=== PATIENT | female | born 1990 | race African-American/Black ===

== ENCOUNTER 2016-10-08 08:04 | Emergency (ER) | payer MEDICAID, MEDICARE ==
[~2016-10-08] VITALS: Ht 157.5 cm; Wt 50.0 kg
[2016-10-08] MEDS ORDERED: ACETAMINOPHEN 500MG TABLET PO ONE (09:45)
[2016-10-08 12:15] VITALS: BP 124/66
== END 2016-10-08 12:30 | disposition home or self-care (01) ==
LOC: ER 08:58
DX: R51 Headache (principal); R42 Dizziness and giddiness; H53.8 Other visual disturbances
CPT/HCPCS: 70450; 81025; 99284

== ENCOUNTER 2018-08-27 21:00 | Observation (INO) | payer MEDICAID, MEDICARE ==
[~2018-08-27] VITALS: Ht 154.9 cm; Wt 71.7 kg
[2018-08-27] MEDS ORDERED: PREN1TAB78 MT (21:32)
== END 2018-08-27 21:04 | disposition home or self-care (01) ==
LOC: 8 EST LDRP 21:00
PROVIDERS: ADMIT Obstetrics & Gynecology; ATTEND Obstetrics & Gynecology
DX: O62.9 Abnormality of forces of labor, unspecified (principal); O26.893 Other specified pregnancy related conditions, third trimester; R10.30 Lower abdominal pain, unspecified; Z3A.39 39 weeks gestation of pregnancy
CPT/HCPCS: 99281; G0378

== ENCOUNTER 2019-06-22 20:29 | Emergency (ER) | payer MEDICAID ==
[~2019-06-22] VITALS: Ht 162.6 cm; Wt 52.0 kg
[~2019-06-22 20:29] MED LIST: PREN1TAB78 MT
[2019-06-22 20:37] VITALS: BP 119/81
== END 2019-06-23 00:55 | disposition left against medical advice (07) ==
LOC: ER 20:29
DX: M25.561 Pain in right knee (principal); Z53.21 Procedure and treatment not carried out due to patient leaving prior to being seen by health care provider